=== PATIENT | female | born 1990 | race African-American/Black ===

== ENCOUNTER 2020-11-20 04:58 | Emergency (ER) | payer SELFPAY ==
[~2020-11-20] VITALS: Ht 157.5 cm; Wt 63.5 kg
--- NOTE | 2020-11-20 05:12 | NUR ---
PT CAME TO ER BED 13 C/O BIZARRE BEHAVIOR. PATIENT ADMITS TO WALKING DOWN THE STREET NAKED. PATIENT STATES, "I JUST GOT REALLY HIGH, GOT NAKED AND STARTED WALKING DOWN THE STREET. JUST LET ME SOBER UP, AND I CAN GIVE YOU THE FULL DETAILS." PATIENT IS AAOX4. BREATHING EVENLY AND UNLABORED ON ROOM AIR. DENIES SI/HI. CONNECTED TO MONITOR.
--- NOTE | 2020-11-20 07:11 | NUR ---
CALLED FOR BREAKFAST.
--- NOTE | 2020-11-20 08:59 | NUR ---
AMAURI GARY W/ DR MONZON AT BEDSIDE TALKING TO PATIENT.
--- NOTE | 2020-11-20 09:25 | NUR ---
PT IS GOING TO A FRIENDS HOUSE. DENIES BEING HOMELESS. WAS PROVIDED W. MEAL AND BUS PASS. AAOX3. DISCHARGE FROM ED IN STABLE CONDITION.
[2020-11-20 09:26] VITALS: BP 145/84
--- NOTE | 2020-11-20 12:35 | NUR ---
SS Consult: SS Consult requested for drug use.The pt. is a 33-year old black female in the ED who was BIBRA after displays of public nudity. Per EMR, pt. admitted to drinking alcohol and using mushrooms. Pt. is alert and oriented and was given appropriate clothing. ABDIRAHMAN met with pt. bedside and patient did not want to continue with interview as she wanted to leave. ABDIRAHMAN provided pt. with addiction resources. Pt. denies SI/HI. Pt. will follow up with seeking rehab with resources provided when ready. Addendum: 11/20/20 at 1249 by AMAURI GARY Late Entry: Assessment completed at 9 am.
== END 2020-11-20 09:27 | disposition home or self-care (01) ==
LOC: ER 05:01
DX: F19.10 Other psychoactive substance abuse, uncomplicated (principal); F10.10 Alcohol abuse, uncomplicated; F17.200 Nicotine dependence, unspecified, uncomplicated; Y90.9 Presence of alcohol in blood, level not specified; Z59.0 Homelessness